=== PATIENT | female | born 1965 | race Caucasian/White ===

== ENCOUNTER → 2018-11-26 | Outpatient (CLI) | payer OTHER ==
[~2018-11-26] MED LIST: CELEXA 20 MG TA20 M1; LEVAQUIN 500 M500 MG PO; LORTAB 7.5/5001 TA1 PO
== END ==
LOC: M.RAD 14:26
DX: M46.82 Other specified inflammatory spondylopathies, cervical region (principal); M48.02 Spinal stenosis, cervical region

== ENCOUNTER 2018-12-10 20:12 | Emergency (ER) | payer OTHER ==
[~2018-12-10] VITALS: Ht 147.3 cm; Wt 47.6 kg
[2018-12-10] MEDS ORDERED: LIDODERM1 EACH TRANSDERM (21:47)
[2018-12-10] MEDS ORDERED: ZOFRAN ODT4 MG DISSOLVE (21:47)
[2018-12-10] MEDS ORDERED: PERCOCET PO (21:47)
[2018-12-10 21:59] VITALS: BP 158/109
== END 2018-12-10 22:00 | disposition home or self-care (01) ==
LOC: M.ERS 20:12
DX: S46.812A Strain of other muscles, fascia and tendons at shoulder and upper arm level, left arm, initial encounter (principal); M54.10 Radiculopathy, site unspecified; F41.9 Anxiety disorder, unspecified; F10.10 Alcohol abuse, uncomplicated; Z79.899 Other long term (current) drug therapy; X58.XXXA Exposure to other specified factors, initial encounter; Y93.89 Activity, other specified; Y92.89 Other specified places as the place of occurrence of the external cause; Y99.8 Other external cause status